=== PATIENT | female | born 1950 | race African-American/Black ===

== ENCOUNTER 2017-07-20 00:23 | Emergency (ER) | payer MEDICARE, OTHER ==
[~2017-07-20] VITALS: Ht 157.5 cm; Wt 63.0 kg
[2017-07-20] MEDS ORDERED: ACETAMINOPHEN 325MG TABLET PO ONE (02:30)
[2017-07-20 04:20] VITALS: BP 127/79
== END 2017-07-20 04:20 | disposition home or self-care (01) ==
LOC: ER 00:40
DX: S00.81XA Abrasion of other part of head, initial encounter (principal); Z90.89 Acquired absence of other organs; Z98.51 Tubal ligation status; W22.8XXA Striking against or struck by other objects, initial encounter; Y93.89 Activity, other specified; Y92.89 Other specified places as the place of occurrence of the external cause; Y99.8 Other external cause status
CPT/HCPCS: 99283